=== PATIENT | female | born 1995 | race African-American/Black ===

== ENCOUNTER 2016-06-02 18:20 | Emergency (ER) | payer MEDICAID ==
[2016-06-02 18:54] LABS: APPEARANCE CLEAR (CLEAR); BILIRUBIN NEGATIVE (NEGATIVE); COLOR YELLOW (YELLOW); GLUCOSE NEGATIVE (NEGATIVE); KETONE NEGATIVE (NEGATIVE); LEUKOCYTE ESTERASE NEGATIVE (NEGATIVE); NITRITE NEGATIVE (NEGATIVE); PROTEIN NEGATIVE (NEGATIVE); UROBILINOGEN NORMAL (NORMAL)
[2016-06-02 19:12] LABS: HCG URINE POSITIVE (NEGATIVE)
== END 2016-06-02 19:22 | disposition home or self-care (01) ==
LOC: D.ER 18:20
PROVIDERS: Emergency Medicine; Physician Assistant
DX: M54.5 Low back pain (principal); F32.9 Major depressive disorder, single episode, unspecified

== ENCOUNTER → 2016-10-13 10:45 | Outpatient (CLI) | payer MEDICAID | END | disposition home or self-care (01) | LOC: D.LDO 10:45 | DX: O36.8130 Decreased fetal movements, third trimester, not applicable or unspecified (principal); O48.0 Post-term pregnancy ==

== ENCOUNTER 2016-10-15 13:07 | Inpatient (IN) | payer MEDICAID ==
[~2016-10-15] VITALS: Ht 160 cm; Wt 104.8 kg
[2016-10-15 14:06] LABS: UDS - AMPHET NEGATIVE QUAL (NEGATIVE); UDS - BARB NEGATIVE QUAL (NEGATIVE); UDS - BENZO NEGATIVE QUAL (NEGATIVE); UDS - COCAINE NEGATIVE QUAL (NEGATIVE); UDS - METH NEGATIVE QUAL (NEGATIVE); UDS - OPIATE NEGATIVE QUAL (NEGATIVE); UDS - PCP NEGATIVE QUAL (NEGATIVE); UDS - THC NEGATIVE QUAL (NEGATIVE)
[2016-10-15 14:09] LABS: APPEARANCE HAZY (CLEAR); COLOR YELLOW (YELLOW); LEUKOCYTE ESTERASE 1+ (NEGATIVE); SPECIFIC GRAVITY 1.015 (1.005-1.020)
[2016-10-15 14:10] LABS: BACTERIA MODERATE /hpf (NONE SEEN); BILIRUBIN NEGATIVE (NEGATIVE); GLUCOSE NEGATIVE (NEGATIVE); KETONE NEGATIVE (NEGATIVE); MUCUS >1+ /lpf (NONE SEEN); NITRITE NEGATIVE (NEGATIVE); PROTEIN NEGATIVE (NEGATIVE); RED CELLS - URINE 0-5 /hpf (0-5); UROBILINOGEN NORMAL (NORMAL)
[2016-10-15] MEDS ORDERED: PRENATAL COMPLE1 TAB PO (16:16)
[2016-10-15] MEDS ORDERED: FERROUS (16:17)
[2016-10-15 16:52] VITALS: BP 128/79; Ht 160 cm; Wt 104.8 kg
[2016-10-15 17:02] LABS: HEMOGLOBIN 12.8 g/dL (12-16); MCH 32.6 pg (26.0-34.0); MCHC 33.7 g/dL (31.0-37.0); MCV 96.7 fL (80.0-100.0); MEAN PLATELET VOLUME 9.2 fL (7.4-10.4); RBC 3.93 10x6/uL (4.00-5.40); RDW 14.6 % (11.5-14.5); WBC 12.6 10x3/uL (4.8-10.8)
[2016-10-16 03:41] VITALS: BP 128/71
--- NOTE | 2016-10-16 03:41 | NUR ---
PT TRANSFERRED TO ROOM 1257 FOR CONTINUED PP CARE OF THIS G1 NOW P1 POST NVD OF MALE INFANT AT 0043. PT ORIENTED TO ROOM. VSS. FUNDUS FIRM, U2 FOLLOWING VOID, WITH SMALL AMT RUBRA LOCHIA, NO CLOTS. PT ORIENTED TO ROOM, BED RAILS USE, CL AND PHONE. INSTRUCTED ON HOW TO REACH NBN IF SHE HAD QUESTIONS REGARDING INFANT USING ROOM PHONE. CL AND PHONE PLACED WITHIN PT REACH. BED PLACED IN LOW POSITION WITH UPPER SIDE RAILS RAISED X2. ICE GIVEN PER PT REQUEST. DENIES ADDITIONAL NEEDS AT THIS TIME. INSTRUCTED TO CALL RN VIA CL PRIOR TO GETTING OOB TO NEXT VOID, VERBALIZED UNDERSTANDING.
--- NOTE | 2016-10-16 03:45 | NUR ---
PT RATES PAIN /10. MOTRIN AND NORCO ORDERES DISCUSSED WITH PT. VERBALIZED UNDERSTANDING, REQUESTED TO TAKE MOTRIN AND NORCO TOGETHER AT THIS TIME. GIVEN PER REQUESTS (SEE EMAR). PT EDUCATED ON MEDICATION USE, FREQUENCY, AND SIDE EFFECTS. DENIES QUESTIONS AT THIS TIME. WILL CONT TO MONITOR AND ASSIST PRN.
--- NOTE | 2016-10-16 04:35 | NUR ---
PAIN REASSESSMENT COMPLETED. PT RESTING WITH EYES CLOSED. RESPIRATIONS REGULAR, NO S/S OF DISTRESS NOTED. S/O AT BEDSIDE SLEEPING ALSO. BED REMAINS IN LOW POSITION WITH UPPER SIDE RAILS RAISED X2. CL AND PHONE WITHIN REACH. WILL CONT TO MONITOR.
--- NOTE | 2016-10-16 06:27 | NUR ---
ROUNDS MADE. PT IN HIGH FOWLERS POSITION . DENIES NEEDS AT THIS TIME. S/O ON COUCH SLEEPING AT THIS TIME. BED IN LOW POSITION WITH UPPER SIDE RAILS RAISED X2. CL AND PHONE WITHIN REACH. WILL CONT TO MONITOR AND ASSIST PRN.
--- NOTE | 2016-10-16 07:20 | NUR ---
AWAKE HOLDING INFANT IN ARMS. SHIFT ASSESSMENT COMPLETED. FOB SLEEPING ON COUCH. SIDE RAILS UP X 2. REGULAR DIET SERVED. C/O 5-6/10 CRAMPING. DISCUSSED CRAMPING AND WITH . VERBALIZED UNDERSTANDING. WILL CHECK WHEN LAST MEDS GIVEN. CALL LIGHT IN REACH. TO CALL WHEN READY FOR SHOWER. TO NURSERY FOR ASSESSMENT.
[2016-10-16 07:22] VITALS: BP 121/63
--- NOTE | 2016-10-16 07:45 | NUR ---
INFORMED PT TOO EARLY FOR MOTRIN. OFFERED NORCO 5 MGO FOR RELIEF OF PAIN. DECLINED AT THIS TIME STATING "I THINK I CAN WAIT." TO CALL IF ANYTHING IS NEEDED. VERBALIZED UNDERSTANDING.
--- NOTE | 2016-10-16 08:53 | NUR ---
SITTING UP IN BED . NO REQUESTS. ITEMS FOR SHOWER LEFT IN ROOM. INSTRUCTED TO CALL IF ANYTHING IS NEEDED. SIDE RAILS UP X 2, BED IN LOW POSITION AND CALL LIGHT IN REACH. VISITOR SLEEPING ON COUCH.
--- NOTE | 2016-10-16 09:46 | NUR ---
UP TO SHOWER. PARTIAL LINEN CHANGE COMPLETED. FOB IN ROOM HOLDING INFANT. TO CALL IF ANYTHING IS NEEDED.
--- NOTE | 2016-10-16 11:30 | NUR ---
REQUESTED ADDITIONAL BABY BLANKETS. NO OTHER REQUESTS.
--- NOTE | 2016-10-16 13:28 | NUR ---
SITTING UP IN BED INFANT. FOB IN ROOM. BOTH DENY NEEDING ANYTHING. INSTRUCTED TO CALL IF ANYTHING IS NEEDED. Rusty BARKLEY RN FROM NURSERY IN ROOM. SIDE RAILS UP X 2, CALL LIGHT IN REACH.
--- NOTE | 2016-10-16 15:25 | NUR ---
CALLED TO ROOM ASKING TO SPEAK TO NURSERY NURSE REGARDING . FEELS LIKE SHE IS "NO LONGER MAKING ANY MILK". NURSERY RN CURRENTLY IN OR. DISCUSSED , MILK PRODUCTION, COMFORT MEASURES, PACIFIER USE AND THAT SOMETIMES BABY FIND COMFORT ATTACHED TO BREAST BUT NOT NECESSARILY HUNGRY. ENCOURAGED TO ENSURE INFANT IS DRY, INSTRUCTED ON SWADDLING, PACIFIER USE, WALKING WITH TO HELP IF INFANT IS CRYING. SWADDLED AND VISITOR HOLDING. PACIFIER IN MOUTH, NO LONGER CRYINING WILL HAVE NURSERY RN COME SEE PATIENT WHEN SHE IS ABLE.
[2016-10-16 16:22] VITALS: BP 105/72
--- NOTE | 2016-10-16 16:25 | NUR ---
SITTING IN BED. INFANT IN CRIB. C/O TENDERNESS AT SALINE LOCK SITE. SLIGHT BLOOD NOTED. DC'D AT THIS TIME. FRESH ICE WATER GIVEN. U/1 FIRM MIDLINE. RUBRA SMALL TO MOD. WRITTEN INFORMATION GIVEN ON , PACIFIER USE, DIET, NIPPLE TENDERNESS. ENCOURAGED TO READ THIS PM AND WILL DISCUSS TOMORROW NEEDED. VERBALIZED UNDERSTANDING. TO CALL IF ANYTHING IS NEEDED.
[2016-10-16 19:50] VITALS: BP 120/70
--- NOTE | 2016-10-16 19:50 | NUR ---
AWAKE DURING INITIAL ROUNDS. INTRODUCED SELF. V/S TAKEN. ASSESSMENT DONE. STATUS POST TODAY AFTER MIDNIGHT. . IN THE ROOM. FAMILY MEMBERS HERE. VOIDING WELL, LOCHIA RUBRA LIGHT PER PATIENT.
--- NOTE | 2016-10-16 23:40 | NUR ---
HER BABY. BONDING WELL.
--- NOTE | 2016-10-17 00:34 | NUR ---
CALL LIGHT ANSWERED. BABY TO THE NURSERY IN OPEN CRIB PER MOM's REQUEST. V/S STABLE.
[2016-10-17 02:00] VITALS: BP 120/66
--- NOTE | 2016-10-17 03:00 | NUR ---
BABY TO MOM's ROOM FOR FEEDINGS.
--- NOTE | 2016-10-17 04:30 | NUR ---
INFANT BACK IN THE NURSERY.
--- NOTE | 2016-10-17 06:12 | NUR ---
SLEPT ON AND OFF DURING THE NIGHT. AWAKE DURING INFANT'S FEEDING TIME. CONTINUING PLAN OF CARE.
--- NOTE | 2016-10-17 06:22 | NUR ---
BROUGHT BABY TO MOM FOR . DERMAPLAST, EPIFOAM AND TUCKS GIVEN TO PATIENT WITH INSTRUCTIONS ON HOW TO USE.
--- NOTE | 2016-10-17 07:15 | NUR ---
PT IS SITTING UP IN THE BED, DENIES NEEDS AT THIS TIME. SR UP X 2, CALL LIGHT AND PHONE WITHIN REACH.
--- NOTE | 2016-10-17 07:15 | NUR ---
DR. AMAYA ON UNIT, ROUNDING ON PT.
[2016-10-17 07:40] VITALS: BP 111/62
--- NOTE | 2016-10-17 07:40 | NUR ---
PT IS SITTING UP IN THE BED, IN CRIB AT BEDSIDE. SR UP X 2, CALL LIGHT AND PHONE WITHIN REACH. PT DENIES NEEDS AT THIS TIME. BREAKFAST TRAY IS ON BEDSIDE TABLE. MORNING PAPER GIVEN TO PT. AM ASSESSMENT COMPLETED, SEE FLOWSHEET.
--- NOTE | 2016-10-17 08:25 | NUR ---
Brii Juradot 10/17/16 S: Patient states is going good, delivery was better than expected, or what she heard. O: Patient lying in bed holding infant, family member sleep on sofa. Patient looks tired, offered to place infant in crib. swaddled in blanket and placed in crib next to bed. Educated patient that does take time and patience. Explained and provided handout on feeding cues, allow infant to feed on demand, when infant shows signs of feeding cues, place infant to the breast for feeding. To verify infant is latched correctly, place infant tummy to tummy, nose opposite of nipple, gently support infant head and allow to self- latch. Explained breastmilk composition, supply and demand, what takes out, your body will make more of. Encouraged to continue to latch for every feeding, this will help with establishing your milk supply. Provided and explained handouts on positions, starting a feeding, benefits of skin to skin, breastfed babies diaper count, waking a sleeping baby, engorgement, and hand expression ( showed patient how to hand express if needed) . Patient is doing a great job with feeding. Asked if her nipples are sore? Patient states there ok, looked at patient nipples, no signs of trauma, or redness. Showed how to apply lanolin to nipples, and explain the purpose of use. Provided patient with work cell number, please call as needed. A: First time mom, doing good with . P: Continue to support exclusively . Raquel San, CLC
[2016-10-17] MEDS ORDERED: HYDROCODON-ACE1 EAC7 PO (10:33)
[2016-10-17] MEDS ORDERED: IBUPROFEN600 MG PO (10:34)
--- NOTE | 2016-10-17 10:46 | NUR ---
PT HAS REQUESTED PAIN MEDICATION FOR HER BACK PAIN, SEE EMAR FOR ALL MEDS ADM BY THIS RN. PT IS SITTING UP IN THE BED HOLDING INFANT. SR UP X 2, CALL LIGHT AND PHONE WITHIN REACH. PT DENIES OTHER NEEDS AT THIS TIME.
--- NOTE | 2016-10-17 13:15 | NUR ---
PT CALLS OUT CLINICAL DATA ABSTRACTOR LIGHT AND REQUESTS SPRITE, AND DR. LAYNE TO DRINK, SERVED. PT IS INFANT. SR UP X 2, CALL LIGHT AND PHONE WITHIN REACH. DENIES OTHER NEEDS AT THIS TIME.
--- NOTE | 2016-10-17 19:08 | NUR ---
TELEPHONE CALL MADE TO DR. AMAYA, TO VERIFY CBC ORDERED FOR 10/20/16, STATES "IT WAS A MISTAKE, IT SHOULD HAVE BEEN ORDERED FOR 0800 THIS MORNING, BUT SHE IS DOING WELL, SO YOU DON'T HAVE TO GET THE CBC BEFORE SHE IS DISCHARGED HOME". REPORT TO Eileen RIVERA RN.
--- NOTE | 2016-10-17 19:15 | NUR ---
PT SITTING ON SIDE OF BED READY TO GO HOME, DISCHARGE PAPERWORK GONE OVER VERBALLY, PT VERBALIZES UNDERSTANDING, PT DENIES QUESTIONS, INFORMED PT THAT A NURSE FROM L&D WILL COME TO D/C VIA WC, PT VERBALIZES UNDERSTANDING, FOB OUT TO PULL CAR AROUND FRONT
--- NOTE | 2016-10-17 19:30 | NUR ---
PT D/C HOME VIA PER YENNY DICKERSON RN, PT HAS ALL DISCHARGE PAPERWORK, APPOINTMENT CARD AND PRESCRIPTIONS IN HAND
[2016-10-18 06:14] LABS: RAPID PLASMA REAGIN Non Reactive (Non Reactive)
== END 2016-10-17 19:30 | disposition home or self-care (01) | DRG 775 ==
LOC: D.LDO 13:07 → D.LD 16:01
PROVIDERS: ADMIT Obstetrics & Gynecology
PROC: 10E0XZZ Delivery of Products of Conception, External Approach (ICD-10-PCS; principal; 2016-10-16)
DX: O99.824 Streptococcus B carrier state complicating childbirth (principal); Z3A.40 40 weeks gestation of pregnancy; Z37.0 Single live birth; O77.0 Labor and delivery complicated by meconium in amniotic fluid

== ENCOUNTER → 2018-06-13 08:48 | Outpatient (CLI) | payer MEDICAID ==
[2016-10-15 16:52] VITALS: BMI 41.0
[~2018-06-13 08:48] MED LIST: FERROUS; HYDROCODON-ACE1 EAC7 PO; IBUPROFEN600 MG PO; PRENATAL COMPLE1 TAB PO
== END | disposition home or self-care (01) ==
LOC: D.US 08:48
DX: O26.893 Other specified pregnancy related conditions, third trimester (principal); Z3A.33 33 weeks gestation of pregnancy; R10.2 Pelvic and perineal pain

== ENCOUNTER 2018-07-03 12:15 | Outpatient (CLI) | payer MEDICAID ==
[2016-10-15 16:52] VITALS: BMI 41.0
[2018-07-03 13:32] LABS: BASOPHILS 0.1 % (0-2); EOSINOPHILS 0.5 % (0-7); HEMATOCRIT 29.2 % (36.0-48.0); HEMOGLOBIN 9.8 g/dL (12-16); IMMATURE GRANULOCYTES 0.3 % (0-5); LYMPHOCYTES 25.3 % (15-50); MCH 31.9 pg (26.0-34.0); MCHC 33.6 g/dL (31.0-37.0); MCV 95.1 fL (80.0-100.0); MEAN PLATELET VOLUME 8.7 fL (7.4-10.4); MONOCYTES 6.8 % (2-11); PLATELET COUNT 244 10x3/uL (130-400); RBC 3.07 10x6/uL (4.00-5.40); RDW 12.7 % (11.5-14.5); WBC 10.9 10x3/uL (4.8-10.8)
[2018-07-03 13:53] LABS: T4 THYROXIN - FREE 0.69 ng/dL (0.76-1.46); THYROID STIMULATING HORMONE 1.71 uIU/mL (0.36-3.74)
[2018-07-03 16:54] LABS: UDS - AMPHET NEGATIVE QUAL (NEGATIVE); UDS - BARB NEGATIVE QUAL (NEGATIVE); UDS - BENZO NEGATIVE QUAL (NEGATIVE); UDS - COCAINE NEGATIVE QUAL (NEGATIVE); UDS - OPIATE NEGATIVE QUAL (NEGATIVE); UDS - PCP NEGATIVE QUAL (NEGATIVE); UDS - THC NEGATIVE QUAL (NEGATIVE)
== END 2018-07-04 06:23 | disposition home or self-care (01) ==
LOC: D.LDO 12:15 → D.LD 22:00 → D.LDO 07-04 06:23
PROVIDERS: Obstetrics & Gynecology
DX: O26.899 Other specified pregnancy related conditions, unspecified trimester (principal); Z3A.00 Weeks of gestation of pregnancy not specified

== ENCOUNTER → 2018-07-07 13:15 | Outpatient (CLI) | payer MEDICAID ==
[2016-10-15 16:52] VITALS: BMI 41.0
== END | disposition home or self-care (01) ==
LOC: D.LDO 13:15
DX: O26.899 Other specified pregnancy related conditions, unspecified trimester (principal); Z3A.00 Weeks of gestation of pregnancy not specified

== ENCOUNTER → 2018-07-17 11:05 | Outpatient (CLI) | payer MEDICAID ==
[2016-10-15 16:52] VITALS: BMI 41.0
== END | disposition home or self-care (01) ==
LOC: D.LDO 11:05
PROVIDERS: ATTEND Obstetrics & Gynecology
DX: O47.03 False labor before 37 completed weeks of gestation, third trimester (principal)

== ENCOUNTER → 2018-07-20 12:24 | Outpatient (CLI) | payer MEDICAID ==
[2016-10-15 16:52] VITALS: BMI 41.0
== END | disposition home or self-care (01) ==
LOC: D.LDO 12:24
PROVIDERS: ATTEND Obstetrics & Gynecology
DX: O26.893 Other specified pregnancy related conditions, third trimester (principal); Z3A.38 38 weeks gestation of pregnancy

== ENCOUNTER 2018-07-22 05:54 | Inpatient (IN) | payer MEDICAID ==
[~2018-07-22] VITALS: Ht 165.1 cm; Wt 103.0 kg
[2018-07-22 07:26] LABS: HEMATOCRIT 32.1 % (36.0-48.0); HEMOGLOBIN 10.5 g/dL (12-16); MCH 31.3 pg (26.0-34.0); MCHC 32.7 g/dL (31.0-37.0); MCV 95.5 fL (80.0-100.0); MEAN PLATELET VOLUME 8.8 fL (7.4-10.4); RBC 3.36 10x6/uL (4.00-5.40); RDW 13.2 % (11.5-14.5); WBC 11.9 10x3/uL (4.8-10.8)
[2018-07-22 07:55] LABS: APPEARANCE HAZY (CLEAR); BILIRUBIN NEGATIVE (NEGATIVE); COLOR YELLOW (YELLOW); GLUCOSE NEGATIVE (NEGATIVE); KETONE NEGATIVE (NEGATIVE); NITRITE NEGATIVE (NEGATIVE); PROTEIN NEGATIVE (NEGATIVE); SPECIFIC GRAVITY 1.015 (1.005-1.020); UROBILINOGEN NORMAL (NORMAL)
[2018-07-22 07:56] LABS: BACTERIA FEW /hpf (NONE SEEN); EPITHELIAL CELLS 25-50 /hpf (0-5); WHITE CELLS - URINE OCC /hpf (0-5)
[2018-07-22 09:18] VITALS: BP 108/59; BMI 37.8
[2018-07-22 09:58] LABS: UDS - AMPHET NEGATIVE QUAL (NEGATIVE); UDS - BARB NEGATIVE QUAL (NEGATIVE); UDS - BENZO NEGATIVE QUAL (NEGATIVE); UDS - COCAINE NEGATIVE QUAL (NEGATIVE); UDS - OPIATE NEGATIVE QUAL (NEGATIVE); UDS - PCP NEGATIVE QUAL (NEGATIVE); UDS - THC NEGATIVE QUAL (NEGATIVE)
[2018-07-22 19:55] VITALS: BP 104/58
--- NOTE | 2018-07-22 19:55 | NUR ---
SHIFT ASSESSMENT COMPLETED. TACHYCARDIA NOTED WITH HR OF 117, PT REPORTS THAT HR NORMALLY RUNS "YANNI HIGH AND IT'S ACTUALLY BETTER." DENIES CHEST PAIN, PRESSURE, SOB, DIZZINESS AND LIGHTHEADEDNESS. PER NOTE FROM PREVIOUS SHIFT, MD IS AWARE OF TACHYCARDIA, REGULAR RYYMTH NOTED UPON AUSCULATION. BREATH SOUNDS CLEAR AND EQUAL. PAIN 8/10 ABD CRAMPING AND PERINUM BURNING/STINGING, 2 TABS TYLENOL #3 GIVEN PER ORDER, EDUCATED ON MEDS. FUNDUS FIRM, MIDLINE AND U1 WITH SMALL AMT RUBRA LOCHIA, NO CLOTS NOTED. BLADDER NON-DISTENDED. EDUCATED ON IMPORTANCE OF VOIDING AT LEAST Q2 HOURS, VERBALIZES UNDERSTANDING. PT UP TO BATHROOM FOLLOWING ASSESSMENT, VOIDED 700 MLS IN HAT. PERIPADS CHANGED, CLEAN PANTIES PROVIDED. W/C OFFERED FOR TRANSPORT TO ROOM 1257, REFUSES STATES THAT SHE WANTS TO AMBULATE. STEADY GAIT NOTED.
--- NOTE | 2018-07-22 20:15 | NUR ---
PT AMBULATORY TO ROOM 1257 FOR CONTINUED PP CARE WITH THIS RN AND SIGNIFICANT OTHER. ORIENTED TO ROOM, CALL LIGHT USE, BATHROOM, AND BED RAIL BUTTONS, VERBALIZES UNDERSTANDING. DENIES DIZZINESS AND LIGHTHEADEDNESS. STATES THAT SHE WANTS TO NAP BEFORE TIME TO FEED . DENIES NEEDS. BED IN LOW POSITION WITH UPPER SIDE RIALS RAISED X2. CALL LIGHT AND PHONE WITHIN REACH. NBN NOTIFIED THAT PT HAD BEEN MOVED TO ROOM 1257.
--- NOTE | 2018-07-22 20:45 | NUR ---
PAIN REASSESSMENT COMPLETED, 06/24. STATES THAT PAIN IS MAINLY CRAMPING NOW AND PERINUM FEELS BETTER. CURRENTLY LAYING ON LEFT SIDE, STATES THAT SHE IS JUST GOING TO KEEP RESTING UNTIL TIME TO FEED INFANT AGAIN. SIGNIFICANT OTHER AT BEDSIDE, SUPPORTIVE AND ATTENTIVE TO PT NEEDS. BED IN LOW POSITION WITH UPPER SIDE RAILS RAISED X2. CALL LIGHT AND PHONE WITHIN REACH.
--- NOTE | 2018-07-22 21:30 | NUR ---
HELP PT TO BATHROOM. VOIDED AND IODINE USED. SCANT BLEEDING NOTED TO PAD. WENT BACK TO BED. DENIES ANY OTHER NEEDS AT THIS TIME. CL IN REACH
--- NOTE | 2018-07-22 22:10 | NUR ---
SITTING IN HIGH FOWLERS POSITION HOLDING . ASKS IF SHE CAN STILL PLACE INFANT SKIN TO SKIN, ASSISTED WITH PLACING INFANT SKIN TO SKIN PER REQUEST. C/O ABD CRAMPING 07/22, DENIES NEED FOR INTERVENTION AT THIS TIME. ICE WATER PROVIDED. DENIES ADDITIONAL NEEDS AT THIS TIME. INSTRUCTED TO CALL RN FOR V/S CHECK WHEN SHE COMPLETES SKIN TO SKIN, VERBALIZES UNDERSTANDING. BED IN LOW POSITION WITH UPPER SIDE RAILS RAISED X2. CALL LIGHT AND PHONE WITHIN REACH. WILL CONTINUE TO MONITOR AND ASSIST PRN.
--- NOTE | 2018-07-22 23:46 | NUR ---
REQUESTS TO SHOWER. VSS. FUNDUS FIRM MIDLINE AND U2 WITH SCANT RUBRA LOCHIA AT THIS TIME. DENIES DIZZINESS. STATES THAT SIGNIFICANT OTHER WILL REMAIN IN ROOM WITH HER. INSTRUCTED ON USE OF CALL LIGHT WHILE IN BATHROOM, VERBALIZES UNDERSTANDING. LEFT WRIST PIV WRAPPED. TOWELS PROVIDED. LINEN CHANGE OFFERED AND DECLINED. INFANT TO NBN PER PT REQUEST WHILE SHE SHOWERS.
--- NOTE | 2018-07-23 00:18 | NUR ---
OUT OF SHOWER. C/O ABD CRAMPING 11/21 INTERMITTENTLY. TORADOL GIVEN PER REQUEST. DENIES ADDITIONAL NEEDS AT THIS TIME. BED IN LOW POSITION WITH UPPER SIDE RAILS RAISED X2. CALL LIGHT AND PHONE WITHIN REACH. WILL CONTINUE TO MONITOR AND ASSIST PRN.
--- NOTE | 2018-07-23 01:15 | NUR ---
PAIN REASSESSMENT COMPLETED. 06/24. DENIES NEED FOR ADDITIONAL INTERVENTION AT THIS TIME. STATES THAT SHE IS JUST RESTING UNTIL TIME FOR NEXT FEEDING. BED IN LOW POSITION WITH UPPER SIDE RAILS RAISED X2. CALL LIGHT AND PHONE WITHIN REACH. WILL CONTINUE TO MONITOR AND ASSIST PRN.
--- NOTE | 2018-07-23 02:03 | NUR ---
INFANT TO ROOM BY THIS RN FOR FEEDING. ID BANDS MATCHED. DENIES NEED FOR ASSISTANCE WITH BF, STATES THAT SHE WILL CALL FOR HELP PRN. DISCUSSED FILLING OUT HEP B CONSENT AND SECURITY POLICY SHEET, STATES THAT SHE WILL COMPLETE AND SEND BACK TO NBN. PAIN 2-3/10, PERINEAL "SORENESS" AND ABD CRAMPING, TYLENOL #3 OFFERED AND REFUSED AT THIS TIME. STATES SHE WILL NOTIFY RN IF SHE NEEDS PAIN MEDICATIONS. BED IN LOW POSITION WITH UPPER SIDE RAILS RAISED X2. CALL LIGHT AND PHONE WITHIN REACH. SIGNIFICANT OTHER AT BEDSIDE, SUPPORTIVE AND ATTENTIVE TO PT NEEDS.
--- NOTE | 2018-07-23 04:17 | NUR ---
PAIN 8/10, ABD CRAMPING. DISCUSSED TAKING SCHEDULED TYLENOL VS TYLENOL #3. REFUSES TYLENOL, STATES THAT "IT WON'T DO ANYTHING." 2 TABS TYLENOL #3 GIVEN PER ORDER AND REQUEST. ICE WATER AND SANDWICH TRAY PROVIDED PER REQUEST. DENIES ADDITIONAL NEEDS AT THIS TIME. NIPPLE SHEILD PROVIDED PER REQUEST, Freya ZHANG RN TO ROOM TO ASSIST WITH NIPPLE SHIELD USE AND BF. BED IN LOW POSITION WITH UPPER SIDE RAILS RAISED X2. CALL LIGHT AND PHONE WITHIN REACH. WILL CONTINUE TO MONITOR AND ASSIST PRN.
--- NOTE | 2018-07-23 05:01 | NUR ---
RESTING QUIETLY ON LEFT SIDE WITH EYES CLOSED. RESPIRATIONS REGULAR AND UNLABORED, NO S/S OF DISTRESS NOTED. BED IN LOW POSITION WITH UPPER SIDE RAILS RAISED X2. CALL LIGHT AND PHONE WITHIN REACH. INFANT RESTING QUIETLY IN OPEN CRIB AT BEDSIDE. WILL CONTINUE TO MONITOR AND ASSIST PRN.
--- NOTE | 2018-07-23 06:14 | NUR ---
RESTING WITH EYES CLOSED IN SEMI FOLWERS POSITION. RESPIRATIONS REGULAR AND UNLABORED, NO S/S OF DISTRESS NOTED. BED IN LOW POSITION WITH UPPER SIDE RAILS RAISED X2. CALL LIGHT AND PHONE WITHIN REACH. WILL CONTINUE TO MONITOR AND ASSIST PRN. INFANT RESTING QUIETLY IN OPEN CRIB AT BEDSIDE.
--- NOTE | 2018-07-23 08:00 | NUR ---
APPLE JUICE, [place] ALICIA AND ICE GIVEN PER REQUEST.
[2018-07-23 08:04] LABS: BASOPHILS 0.1 % (0-2); EOSINOPHILS 0.6 % (0-7); HEMATOCRIT 29.4 % (36.0-48.0); HEMOGLOBIN 9.8 g/dL (12-16); IMMATURE GRANULOCYTES 0.1 % (0-5); LYMPHOCYTES 25.4 % (15-50); MCH 31.8 pg (26.0-34.0); MCHC 33.3 g/dL (31.0-37.0); MCV 95.5 fL (80.0-100.0); MEAN PLATELET VOLUME 8.9 fL (7.4-10.4); MONOCYTES 10.3 % (2-11); NEUTROPHILS 63.5 % (40-80); PLATELET COUNT 243 10x3/uL (130-400); RBC 3.08 10x6/uL (4.00-5.40); RDW 13.5 % (11.5-14.5); WBC 10.8 10x3/uL (4.8-10.8)
[2018-07-23 09:00] VITALS: BP 114/68
--- NOTE | 2018-07-23 09:00 | NUR ---
ASSESSMENT DONE. SITTING ON SIDE OF BED HOLDING INFANT AND TALKING WITH VISITORS. DENIES NEEDS.
--- NOTE | 2018-07-23 10:02 | NUR ---
RESTING IN BED- DENIES NEEDS.
[2018-07-23 13:37] VITALS: Ht 165.1 cm; Wt 103.0 kg
--- NOTE | 2018-07-23 14:21 | OP ---
PATIENT NAME: TOMER AVILA MEDICAL RECORD: [id number] :96 LOCATION:[id number] ADMISSION DATE:07/22/18 SURGEON: ABRAHAM LEY MD DATE OF OPERATION: 07/22/2018 DELIVERY NOTE PREDELIVERY DIAGNOSES: 1. Active labor at term. 2. Meconium-stained fluid. POSTDELIVERY DIAGNOSES: 1. Mother delivered at term. 2. Meconium-stained fluid. PROCEDURE: Vaginal delivery. ATTENDING: Abraham Ley MD ANESTHETIC: Continuous lumbar/epidural. MIXING TECHNICIAN: Pan Jimenez FINDINGS: Viable male , vertex presentation, Apgars 9 and 9, weight 8 pounds 9 ounces. Placenta spontaneous and intact. No lacerations. ESTIMATED BLOOD LOSS: 300 cc. DISPOSITION: Mother and infant recovered in the room. TRANSINT:[id number] Voice Confirmation ID: [id number] DOCUMENT ID: [id number] ABRAHAM LEY MD at 1421 CC: [id number] DICTATION DATE: 07/22/18 1532 OUTSIDE SALESPERSON: 07/22/[address] [facility] [address] [id number]
--- NOTE | 2018-07-23 14:22 | NUR ---
UP TO SHOWER- TOLERATED WELL.
--- NOTE | 2018-07-23 16:42 | NUR ---
RESTING IN BED - HOLDING . DENIES NEEDS.
--- NOTE | 2018-07-23 19:00 | NUR ---
REPORT TO PM SHIFT
[2018-07-23 19:20] VITALS: BP 112/65
--- NOTE | 2018-07-23 19:20 | NUR ---
PT. CALLED REQUESTING IV BE REMOVED. IV SALINE LOCK SITED IN LT WRIST AND PT. STATES IT IS "HURTING MY HAND". IV CATH. REMOVED WITH INTACT CATH. TIP NOTED. LYING ON BACK WITH FOB AT 45 DEGREES HOLDING . RATES PAIN A 0 OF 10 ON PAIN SCALE. FUNDUS FIRM U/2 AND MIDLINE. ROOM TEMP. WARM. DENIES BOWEL MOVEMENT BUT PASSING FLATUS. DENIES ANY NEEDS AT PRESENT.
--- NOTE | 2018-07-23 22:05 | NUR ---
PT. UP TO SHOWER. FOB IN ROOM LYING ON SOFA AND HOLDING INFANT WHICH IS ASLEEP. ICE PROVIDED TO PT.
--- NOTE | 2018-07-23 23:35 | NUR ---
LYING ON BACK WITH HOB AT 30 DEGREES. HOLDING WHICH IS ASLEEP. PT. WITH CELL PHONE LOOKING AT IT. DENIES PAIN. REQUESTED SUHAS TALLEY AND SAME GIVEN.
--- NOTE | 2018-07-24 01:47 | NUR ---
CALLED STATING THAT SHE NEEDED MED FOR CRAMPING.
--- NOTE | 2018-07-24 01:52 | NUR ---
INTO PT. ROOM TO GIVE REQUESTED PAIN MED. PT. SLEEPING WITH INFANT ON ARM. AWAKENED PT. FOR PAIN SCORE WHICH SHE STATES IS 8/10. SCANNED PT AND MED AND AWAKENED PT. AGAIN FOR ADMINISTRATION OF MED. INFANT STARTING TO CRY AND PT. AWAKENS. INQUIRED IF PT. HAS BEEN AND SHE REPLIES THAT SHE HAS. FOB ASLEEP ON SOFA IN FRONT OF COMPUTER STATION.
--- NOTE | 2018-07-24 02:45 | NUR ---
INTO PT. ROOM. PT. LYING ON BACK WITH EYES CLOSED AND RESPIRATIONS UNLABORED. INFANT SLEEPING IN BED WITH PT. AWAKENED PT. TO INQUIRE ABOUT PAIN SCORE. PT. STATES "IT IS A LITTLE BETTER". RATES A 6 OF 10 ON PAIN SCORE. INFORMED PT. THAT NBN NURSE ENROUTE TO CHECK ON HER BABY. PT. STATES UNDERSTANDING.
--- NOTE | 2018-07-24 02:56 | NUR ---
TYLENOL GIVEN ORDERED. PT. HAS IN BED AND BOTH SHE AND SLEEPING. INQUIRED OF PT. IF INFANT COULD BE PLACED IN CRIB SO SHE COULD REST. PT. AGREEABLE FOR TO RETURN TO NBN UNTIL NEXT FEEDING. SAME DONE.
--- NOTE | 2018-07-24 03:38 | NUR ---
PT. LYING ON LT SIDE WITH EYES CLOSED. RESPIRATIONS UNLABORED.
--- NOTE | 2018-07-24 05:40 | NUR ---
PT. AWAKE AT PRESENT. INFORMED THAT INFANT WOULD BE COMING TO ROOM SHORTLY FOR FEEDING. PT.STATES UNDERSTANDING. DENIES ANY NEEDS AT THIS TIME.
[2018-07-24 07:37] LABS: RAPID PLASMA REAGIN Non Reactive (Non Reactive)
--- NOTE | 2018-07-24 08:23 | NUR ---
Brii Major 07/24/18 S: Patient states this is her second baby and she did breastfeed her first son some but stop because she didn't think he was getting enough. States is going fine, asked how would she know if baby is getting enough and if her body is making milk at this time. Denies pain with latching or discomfort. O: Patient sitting up in bed . Patient is bent over nursing infant from the left breast, while is on the bed feeding in cradle position. isn't turned tummy to tummy and is laying on his back with his head turned to the right for feeding. Offered to assist with adjusting infant latch. Explained how to hold infant for feeding. Explained the importance of patient to sit straight up verses bending to prevent back pain. Always bring infant to you, not you to . Provided patient with two pillow to adjust height to mother breast. was placed on the pillows for support and turned tummy to tummy directly in front of the left breast at 8:26. Infant latched with round cheeks, mouth 140 degrees, sucking in a rocking motion, and appears content with nursing. Observed sucking and removing milk, could hear infant swallowing. Asked if any pain or discomfort with ? Informed patient takes time, practice, and patience in the beginning. Explained breastmilk composition, benefits of skin to skin, positions, normal feeding patterns for an exclusively breastfed infant, how to determine if baby is latched correctly, feeding cues, and how benefits of practicing responsive feeding. Explained how to verify is getting enough milk by diaper count outputs. Please ask for help as needed. Asked if any other questions or concerns. remains at the breast for feeding when CLC left room. A: Patient learning to breastfeed with baby. P: Continue to support during hospital visit. Raquel San, CRISTAL
--- NOTE | 2018-07-24 08:30 | NUR ---
LARGE CUP OF ICE WATER PER PT REQUEST. DENIES PAIN OR DISCOMFORT AT THIS TIME AND IS SITTING UP EATING BREAKFAST WITH INFANT IN CRIB AT BEDSIDE. SIDE RAILS X 2 WITH CALL LIGHT IN REACH.
--- NOTE | 2018-07-24 09:15 | NUR ---
ASSESSMENT COMPLETED CHARTED ON FLOWSHEET. FUNDUS FIRM WITH MASSAGE AT U/U AND LIGHT BLEEDING NOTED TO MARY PAD, SHE DENIES ANY HEAVY BLEEDING AND NO CLOTS WITH VOIDS. ADDITIONAL PERIPAD AND MESH BRIEFS PLACED IN BATHROOM REQUESTED. DENIES PAIN AT THIS TIME AND UNDERSTANDS TO CALL IF PAIN MED IS NEEDED. SIDE RAILS UP X 2 WITH PHONE AND CALL LIGHT IN REACH.
--- NOTE | 2018-07-24 11:24 | NUR ---
PT CONTINUE TO DENY NEEDS. RATES PAIN AT 2/10. INFANT IN ROOM AND PT ALSO HAS FAMILY VISITING. SIDE RAILS UP X 2 WITH CALL LIGHT IN REACH.
--- NOTE | 2018-07-24 13:00 | NUR ---
called to room, pt questions if she needs to contact [facility] about follow up appointment, also states she has routine ob appointment for tomorrow 3-. Reassured her that nurse would call and cancel/reschedule for post delivery appointment. No other needs at this time, in crib at bedside. Pt up walking about room.
--- NOTE | 2018-07-24 15:30 | NUR ---
pt denies pain at this time. large cup of ice with lemon [place] soda per request.
--- NOTE | 2018-07-24 16:15 | NUR ---
VerbaL and written discharge orders gone over to include s/s infection and pp hemorrhage. States understanding of pain control at home, denies any questions or concerns. to breast at this time and pt waiting on her ride, will call when ready.
--- NOTE | 2018-07-24 17:30 | NUR ---
pt calls out stating that her ride is on his way but unable to come inside due to their 3yr old having been sick. Reassured her that was not a problem and if she would let nurse know when they were out front she would be taken out by wheelchair
--- NOTE | 2018-07-24 17:45 | NUR ---
Pt off unit with secured in carrier. Home by private car with family member.
== END 2018-07-24 18:30 | disposition home or self-care (01) | DRG 807 ==
LOC: D.LD 05:54
PROVIDERS: ADMIT Obstetrics & Gynecology; ATTEND Obstetrics & Gynecology
PROC: 10E0XZZ Delivery of Products of Conception, External Approach (ICD-10-PCS; principal; 2018-07-22)
DX: O99.824 Streptococcus B carrier state complicating childbirth (principal); Z37.0 Single live birth; Z3A.39 39 weeks gestation of pregnancy; O99.334 Smoking (tobacco) complicating childbirth; O77.0 Labor and delivery complicated by meconium in amniotic fluid

== ENCOUNTER 2020-08-26 08:36 | Day surgery (SDC) | payer MEDICAID ==
[~2020-08-26] VITALS: Ht 165.1 cm; Wt 83.0 kg
[~2020-08-26 08:36] MED LIST changes: +BACTRIM DS TAB1 EAC1 PO
[2020-08-26 09:03] LABS: HEMATOCRIT 38.1 % (36.0-48.0); HEMOGLOBIN 12.6 g/dL (12-16); MCH 32.1 pg (26.0-34.0); MCHC 33.1 g/dL (31.0-37.0); MCV 96.9 fL (80.0-100.0); MEAN PLATELET VOLUME 8.5 fL (7.4-10.4); RBC 3.93 10x6/uL (4.00-5.40); RDW 13.2 % (11.5-14.5); WBC 11.4 10x3/uL (4.8-10.8)
[2020-08-26 09:13] LABS: HCG SERUM NEGATIVE (NEGATIVE)
[2020-08-26] MEDS ORDERED: NAPROSYN500 MG (09:50)
[2020-08-26 09:52] VITALS: BP 102/78; Ht 165.1 cm; Wt 83.0 kg
[2020-08-26] MEDS ORDERED: BACTRIM DS TAB1 EAC1 PO (12:18)
[2020-08-26] MEDS ORDERED: TYLENOL W/CODEI1 TAB PO (12:18)
--- NOTE | 2020-08-26 17:44 | NUR ---
1340 IV REMOVED INSTRUCTIONS GIVEN
== END 2020-08-26 15:00 | disposition home or self-care (01) ==
LOC: D.OPS 08:36
PROVIDERS: Anesthesiology; ATTEND Surgery
DX: L73.2 Hidradenitis suppurativa (principal); E66.01 Morbid (severe) obesity due to excess calories